=== PATIENT | female | born 1980 | race Caucasian/White ===

== ENCOUNTER 2023-07-27 13:15 | Emergency (ER) | payer OTHER ==
[2023-07-27] MEDS: PANTOPRAZOLE 40 MG TABLET PO STA (14:20)
--- NOTE | 2023-07-27 14:20 | ED ---
General Adult HPI - General Chief complaint: Fall Stated complaint: Fall Time Seen by Provider: 07/27/23 13:55 Source: patient, RN notes reviewed, old records reviewed Mode of arrival: ambulatory Limitations: no limitations - History of Present Illness Initial comments: Is a 42-year-old female who presents emergency department complaining of left hand pain and following a fall. Presents from [place] where she is there for alcohol abuse. Denies hitting her head. Denies loss of consciousness. Denies any other acute injuries other than the left fifth and fourth digit has pain. Some reduced range of motion secondary to pain in the proximal aspect. No other acute complaints at this time. No other injuries. She is up-to-date on tetanus. Presents for further evaluation. - Related Data Allergies Allergy/AdvReac Type Severity Reaction Status Date / Time cefaclor [From Ceclor] Allergy Rash/Hives Verified 07/27/23 13:30 cephalexin [From Keflex] Allergy Rash/Hives Verified 07/27/23 13:30 Penicillins Allergy Anaphylaxis Verified 07/27/23 13:30 sulfamethoxazole Allergy Anaphylaxis Verified 07/27/23 13:30 [From Bactrim] trimethoprim [From Bactrim] Allergy Anaphylaxis Verified 07/27/23 13:30 Review of Systems ROS Statement: Those systems with pertinent positive or pertinent negative responses have been documented in the HPI. Review of Systems: CONST: Denies fever EYES: Denies blurry vision ENT: Denies nasal congestion C/V: Denies Chest pain RESP: Denies shortness of breath GI: Denies abdominal pain : Denies dysuria SKIN: Denies rash. MSK: Endorses left hand pain NEURO: Denies headache ROS Other: All systems not noted in ROS Statement are negative. Past Medical History Past Medical History: Diabetes Mellitus Additional Past Medical History / Comment(s): bilateral knee pain, Touretts, Liver cirrhosis History of Any Multi-Drug Resistant Organisms: None Reported, MRSA Date of last positivie culture/infection: 2002 MDRO Source:: left leg Past Surgical History: No Surgical Hx Reported Past Psychological History: Anxiety, Depression Smoking Status: Current every day smoker Past Alcohol Use History: Occasional Past Drug Use History: Marijuana General Exam - General Exam Comments Initial Comments: General: Appears in no acute distress. HEAD: Normal with no signs of head trauma. EYES: EOMI. ENT: Hearing grossly intact. RESPIRATORY: No respiratory distress. C/V: Regular rate and rhythm. ABD: Abdomen is nondistended. EXT: No obvious deformity. Reduced range of motion of the left fourth and fifth digits secondary to pain. Pain seems to be primarily in the proximal phalange of the fourth and fifth digits. Neurovascular intact. SKIN: Superficial abrasions to the lateral fourth and fifth digits on the left hand. NEURO: Alert and oriented. Limitations: no limitations Course Vital Signs 07/27/23 13:23 Temperature 98.2 F Pulse Rate 87 Respiratory 16 Rate Blood Pressure 140/87 O2 Sat by Pulse 98 Oximetry Medical Decision Making - Medical Decision Making Was pt. sent in by a medical professional or institution (, PA, BROADBAND ENGINEER, urgent care, hospital, or senior living...) When possible be specific @ -No Did you speak to anyone other than the patient for history (EMS, parent, family, police, friend...)? What history was obtained from this source @ -No Did you review nursing and triage notes (agree or disagree)? Why? @ -I reviewed and agree with nursing and triage notes Were old charts reviewed (outside hosp., previous admission, EMS record, old EKG, old radiological studies, urgent care reports/EKG's, senior living records)? Report findings @ -No old charts were reviewed Differential Diagnosis (chest pain, altered mental status, abdominal pain women, abdominal pain men, vaginal bleeding, weakness, fever, dyspnea, syncope, headache, dizziness, GI bleed, back pain, seizure, CVA, palpatations, mental health, musculoskeletal)? @ -Differential Musculoskeletal Muscular strain, contusion, ligament sprain, fracture, arthritis, septic arthritis, bursitis, cellulitis, muscle spasm, nerve compression, DVT, arterial occlusion, herpes zoster, electrolyte abnormality, tumor.... This is not meant to be in all inclusive list EKG interpreted by me (3pts min.). @ -None done X-rays interpreted by me (1pt min.). @ -Patient's x-ray showed no obvious acute traumatic injury. CT interpreted by me (1pt min.). @ -None done U/S interpreted by me (1pt. min.). @ -None done What testing was considered but not performed or refused? (CT, X-rays, U/S, labs)? Why? @ -None What meds were considered but not given or refused? Why? @ -None Did you discuss the management of the patient with other professionals (professionals i.e. , PA, BROADBAND ENGINEER, lab, RT, psych nurse, foster care social worker, contact center representative, teacher, emergency response officer, continuous pillowcase cutter)? Give summary @ -No Was smoking cessation discussed for >3mins.? @ -No Was critical care preformed (if so, how long)? @ -No Were there social determinants of health that impacted care today? How? (Homelessness, low income, unemployed, alcoholism, drug addiction, transportation, low edu. Level, literacy, decrease access to med. care, snf, rehab)? @ -No Was there de-escalation of care discussed even if they declined (Discuss DNR or withdrawal of care, Hospice)? DNR status @ -No What co-morbidities impacted this encounter? (DM, HTN, Smoking, COPD, CAD, Cancer, CVA, ARF, Chemo, Hep., AIDS, mental health diagnosis, sleep apnea, morbid obesity)? @ -None Was patient admitted / discharged? Hospital course, mention meds given and route, prescriptions, significant lab abnormalities, going to OR and other pertinent info. @ -Patient presents complaining of left hand injury after a fall. No concern for head injury. No LOC. Is not on thinners. Up-to-date on tetanus. I did offer analgesia medications which were declined. Patient is asking for dose of antiacid medication as she did not take it this morning. Otherwise I did recommend x-rays which were excepted. Will obtain x-ray of the left hand. Vital signs within acceptable limits. Imaging unremarkable. I updated the patient. She expressed understanding. She will be discharged home at this time. Patient was in agreement this plan. Strict return precautions discussed. Does have access to Motrin and Tylenol at the facility. She will ice it, rested. Strict return precautions discussed. I instructed the patient to follow up with their PCP in the next 1-3 days. I explained that the patient should return to the emergency department if they experience any worsening symptoms. Strict return precautions were discussed with the patient. The patient expressed understanding of these instructions. I answered all questions that the patient had. The patient was discharged home in good condition with their prescriptions and follow up information. Undiagnosed new problem with uncertain prognosis? @ -No Drug Therapy requiring intensive monitoring for toxicity (Heparin, Nitro, Insulin, Cardizem)? @ -No Were any procedures done? @ -No Diagnosis/symptom? @ -Left finger sprain Acute, or Chronic, or Acute on Chronic? @ -Acute Uncomplicated (without systemic symptoms) or Complicated (systemic symptoms)? @ -Uncomplicated Side effects of treatment? @ -None Exacerbation, Progression, or Severe Exacerbation] @ -No Poses a threat to life or bodily function? @ -No Disposition Clinical Impression: Sprain, finger Disposition: HOME SELF-CARE Condition: Good Instructions (If sedation given, give patient instructions): Finger Sprain (ED) Is patient prescribed a controlled substance at d/c from ED?: No Referrals: None,Stated [Primary Care Provider] - 1-2 days Time of Disposition: 15:36
--- NOTE | 2023-07-27 14:45 | XR ---
EXAMINATION TYPE: XR hand complete LT DATE OF EXAM: 07/27/2023 COMPARISON: NONE HISTORY: Pain TECHNIQUE: Three views are submitted. FINDINGS: The osseous structures are intact. The joint spaces are preserved and there is no acute fracture or dislocation. IMPRESSION: 1. No definite acute fracture or dislocation if symptoms persist, follow-up study in 7 to 10 days wo uld be suggested
[2023-07-27 16:08] VITALS: BP 136/80; PULSE 68; RESP 18; TEMP 98
== END 2023-07-27 15:45 | disposition home or self-care (01) ==
LOC: EC 13:15
DX: S63.615A Unspecified sprain of left ring finger, initial encounter (principal); S63.617A Unspecified sprain of left little finger, initial encounter; F17.200 Nicotine dependence, unspecified, uncomplicated; F12.90 Cannabis use, unspecified, uncomplicated; W19.XXXA Unspecified fall, initial encounter
CPT/HCPCS: 99283